=== PATIENT | male | born 1990 | race Caucasian/White ===

== ENCOUNTER 2021-11-27 10:54 | Emergency (ER) | payer BC, SELFPAY ==
--- NOTE | 2021-11-27 10:55 | ED.MALEGU ---
HPI - Male Genitourinary General Chief complaint: Urogenital-Male Stated complaint: L TESTICLE/GROIN PAIN Time Seen by Provider: 11/27/21 10:55 Source: patient Mode of arrival: ambulatory Limitations: no limitations History of Present Illness HPI Narrative: Mr. Smalls is a 31-year-old male patient presenting to the clinic today with complaints of left-sided testicle pain since Tuesday. He reports he has been using a jockstrap and that has been helping since this morning. He reports after he took his jockstrap off this morning he had pain over the left testicle and has felt a bump in this area of discomfort. He has a history of a vasectomy in the past. He denies any urinary symptoms or any new sexual partners. He denies any discomfort with ejaculation or any blood in his semen. Contacted his primary care provider who is thinking he may have a hernia. He reports some pain to the left lower flank and in the left groin as well. He denies any known fever but has a low-grade temp in the clinic today. Related Data Allergies Allergy/AdvReac Type Severity Reaction Status Date / Time No Known Allergies Allergy Verified 11/27/21 11:23 Review of Systems Review of Systems: Pertinent positives per HPI. Patient denies any fever, chills, rash, headache, visual changes, dizziness, cough, runny nose, sore throat, shortness of breath, chest pain, palpitations, nausea, vomiting, diarrhea, constipation, abdominal pain, or any urinary issues. PMFSH Past Medical History Medical History Allergies Anxiety GERD without esophagitis Hyperlipidemia OCD (obsessive compulsive disorder) Surgical History Surgical History Enlarged tonsils and adenoids 2002 H/O vasectomy 2020 History of adenoidectomy (~2000) History of tonsillectomy (~2000) [place] teeth removed 2006 Family History Family History Grandparent Family history of malignant neoplasm Grandparent Heart disease paternal Cancer paternal Other Asthma Social History Social History (Reviewed 11/27/21 @ 10:56 by FRANCIA Fleming Social History: Artemio is single and has no children. 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 Smoking status: Never smoker Second hand tobacco smoke exposure: No Alcohol intake: current Drinks per week: 6 Alcohol use details: beer Substance use: never Substance use type: does not use Gender identity (if verbalized by the patient): Male Spiritual care concerns: No Agree to blood products: Yes Comments At the time of my signature, I reviewed and agree with the nursing past medical, surgical, social, and family history. There is no relevant family history pertinent to the patient complaint. Exam Narrative: General: Well-developed, obese, in no apparent distress. Head: Normocephalic, atraumatic. Cardio: Regular rate and rhythm, s1 and s2 normal, no murmur appreciated. Resp: Clear to auscultation bilaterally, no rhonchi, rales, wheezing or rubs. Abdomen: Soft, pliable, bowel sounds present in all quadrants, non-tender to palpation, no organomegaly, no CVAT tenderness. : Normal circumcised penis without corneal adhesions, lesions or masses, no visualized scrotal masses or lesions, testes bilaterally descended, tenderness to palpation over the left epididymis, no masses palpable over the testes, cremasteric reflex present bilaterally, no inguinal or femoral hernia visualized or palpable when bearing down. Course Course Emergency Course: Portions of this record may have been created with voice recognition software. Level of Care: Express Care Visit Vital Signs Vital signs: Vital Signs Temperature 37.6 C H 11/27/21 11:04 Pulse Rate 76 11/27/21 11:04 Respi
[2021-11-27 11:04] VITALS: BP 131/93; PULSE 76; RESP 16; TEMP 37.6; O2SAT 100
== END 2021-11-27 11:55 | disposition home or self-care (01) ==
PROVIDERS: Emergency Provider Nurse Practitioner Family; PCP Nurse Practitioner Family
DX: N45.1 Epididymitis (principal); K21.9 Gastro-esophageal reflux disease without esophagitis; E78.5 Hyperlipidemia, unspecified
CPT/HCPCS: 81003; 87491; 87591; 87661; 99213; G0463